=== PATIENT | female | born 1965 | race Native Hawaiian/Other Pacific Islander ===

== ENCOUNTER 2016-11-28 10:02 | Outpatient (CLI) | payer OTHER | END 2016-11-28 11:02 | disposition home or self-care (01) | LOC: MAMMO 10:02 | DX: Z12.39 Encounter for other screening for malignant neoplasm of breast (principal); M81.0 Age-related osteoporosis without current pathological fracture | CPT/HCPCS: G0202-TC ==

== ENCOUNTER 2018-06-23 09:21 | Outpatient (CLI) | payer OTHER | END 2018-06-23 22:10 | disposition home or self-care (01) | LOC: MAMMO 09:21 | DX: Z12.31 Encounter for screening mammogram for malignant neoplasm of breast (principal) ==

== ENCOUNTER 2018-11-09 07:59 | Outpatient (CLI) | payer OTHER | END 2018-11-09 22:28 | disposition home or self-care (01) | LOC: LAB 07:59 | DX: Z11.59 Encounter for screening for other viral diseases (principal); R53.83 Other fatigue; R73.9 Hyperglycemia, unspecified; M25.50 Pain in unspecified joint | CPT/HCPCS: 82670; 83001; 84402; 84481; 86039; 86376 ==

== ENCOUNTER → 2019-01-29 13:04 | Outpatient (CLI) | payer OTHER | END | disposition home or self-care (01) | LOC: AMB 13:04 | DX: Z04.3 Encounter for examination and observation following other accident (principal) ==

== ENCOUNTER 2019-08-18 13:01 | Outpatient (CLI) | payer OTHER | END 2019-08-18 19:36 | disposition home or self-care (01) | LOC: MAMMO 13:01 | DX: Z12.31 Encounter for screening mammogram for malignant neoplasm of breast (principal) ==

== ENCOUNTER 2020-06-28 06:22 | Outpatient (CLI) | payer OTHER ==
[2020-06-28 06:51] LABS: PLATELET COUNT 228 K/uL (152-353)
[2020-06-28 08:02] LABS: POTASSIUM 4.6 mmol/L (3.6-5.2); SODIUM 143 mmol/L (136-145)
== END 2020-06-28 20:03 | disposition home or self-care (01) ==
LOC: LABW 06:22
PROVIDERS: Internal Medicine
DX: R07.9 Chest pain, unspecified (principal); E78.00 Pure hypercholesterolemia, unspecified; R06.00 Dyspnea, unspecified
CPT/HCPCS: 36415; 80053; 80061; 82550; 82553; 83880; 84439; 84443; 84484; 85027; 85379

== ENCOUNTER 2021-02-05 08:17 | Outpatient (CLI) | payer OTHER | END 2021-02-05 20:40 | disposition home or self-care (01) | LOC: MAMMO 08:17 → MRI 08:17 | PROVIDERS: ATTEND Otolaryngology | DX: H91.22 Sudden idiopathic hearing loss, left ear (principal); Z12.31 Encounter for screening mammogram for malignant neoplasm of breast | CPT/HCPCS: 36415; 82565; 84520; A9576 ==

== ENCOUNTER 2021-07-16 15:02 | Outpatient (CLI) | payer OTHER | END 2021-07-16 22:16 | disposition home or self-care (01) | LOC: LAB 15:02 | PROVIDERS: ATTEND Internal Medicine | DX: U07.1 COVID-19 (principal) | CPT/HCPCS: 36415; 86769 ==

== ENCOUNTER 2021-12-09 13:19 | Outpatient (CLI) | payer OTHER | END 2021-12-09 20:27 | disposition home or self-care (01) | LOC: RAD 13:19 | PROVIDERS: ATTEND Internal Medicine | DX: J40 Bronchitis, not specified as acute or chronic (principal) ==

== ENCOUNTER 2023-03-13 08:37 | Outpatient (CLI) | payer OTHER | END 2023-03-13 19:14 | disposition home or self-care (01) | LOC: LABW 08:37 | PROVIDERS: ATTEND Internal Medicine | DX: R73.9 Hyperglycemia, unspecified (principal) | CPT/HCPCS: 82951; 82952 ==

== ENCOUNTER 2023-07-06 14:17 | Outpatient (CLI) | payer OTHER | END 2023-07-06 21:34 | disposition home or self-care (01) | LOC: RAD 14:17 | PROVIDERS: ATTEND Internal Medicine | DX: M54.6 Pain in thoracic spine (principal); M54.59 Other low back pain ==